=== PATIENT | female | born 1985 | race African-American/Black ===

== ENCOUNTER 2017-03-02 04:27 | Observation (INO) | payer MEDICAID, OTHER ==
[~2017-03-02] VITALS: Ht 157.5 cm; Wt 87.1 kg
[~2017-03-02 04:27] MED LIST: PROAIR HFA 90 MCG INHALER
[2017-03-02 06:18] LABS: CLARITY URINE CLOUDY (CLEAR); COLOR URINE YELLOW (YELLOW); GLUCOSE URINE NEGATIVE (NEGATIVE); KETONES URINE TRACE (NEGATIVE); LEUKOCYTE ESTERASE URINE 1+ (NEGATIVE); NITRITE URINE NEGATIVE (NEGATIVE); OCCULT BLOOD URINE TRACE (NEGATIVE); PH URINE 5.5 (4.5-8.0); PROTEIN URINE TRACE (NEGATIVE); SPECIFIC GRAVITY URINE 1.029 (1.005-1.030)
[2017-03-02] MEDS ORDERED: LACTATED RINGERS 1,000 ML IV ONE (06:30)
[2017-03-02] MEDS ORDERED: ACETAMINOPHEN 500MG TABLET PO SCH (06:30)
[2017-03-02 06:58] LABS: *BARBITURATES SCREEN URINE NEGATIVE (NEGATIVE); *BENZODIAZEPINES SCREEN URINE NEGATIVE (NEGATIVE); *COCAINE SCREEN URINE NEGATIVE (NEGATIVE); METHADONE URINE SCREEN NEGATIVE (NEGATIVE); OPIATES URINE SCREEN NEGATIVE (NEGATIVE); PHENCYCLIDINE URINE SCREEN NEGATIVE (NEGATIVE)
[2017-03-02 07:12] LABS: *AMPHETAMINES SCREEN URINE PRESUMTIVE POSITIVE (NEGATIVE); CANNABINOID URINE SCREEN PRESUMTIVE POSITIVE (NEGATIVE)
[2017-03-02] MEDS ORDERED: CEFAZOLIN 2,000 MG in DEXT 5% WATER 100 ML IV NR (08:00)
== END 2017-03-02 09:45 | disposition home or self-care (01) ==
LOC: L&D 04:27
PROVIDERS: ADMIT Obstetrics & Gynecology; ATTEND Obstetrics & Gynecology
DX: O62.9 Abnormality of forces of labor, unspecified (principal); Z3A.30 30 weeks gestation of pregnancy
CPT/HCPCS: 80305; 81001; 96365; 96366; 99281; G0378; J0690; J7120; 96360; 96361; J7060